=== PATIENT | female | born 1990 | race Caucasian/White ===

== ENCOUNTER 2025-10-01 12:58 | Outpatient (OUT) | payer OTHER, SELFPAY ==
--- NOTE | 2025-10-01 13:07 | US_ITS ---
The [address] [address] Patient Name: CAROLA WILLSON MRN: [id number] date: 1990 Sex: F Assigned Patient Location: [place] Current Patient Location: [place] Accession/Order Number: [id number] Exam Date: 10/01/2025 13:08 Report Date: 10/01/2025 19:43 At the request of: KAILA BARRIOS Procedure: US abdomen limited Limited ultrasound assessment of the left anterior-inferior chest wall HISTORY: Palpable lump swelling on the left for one day. There is a nonspecific prominence of the subcutaneous tissues in region of palpable abnormality. No distinct focal abnormality identified. US/US abdomen limited IMPRESSION: Nonspecific focal prominence of subcutaneous fat. No distinct lesion. Impression dictated by: Marco Antonio Ramsey M.D. 10/01/2025 7:43 PM Dictation Location: [place] [address] Electronically authenticated by: [id number] Y Date: 10/01/2025 19:43
== END 2025-10-01 12:59 | disposition home or self-care (01) ==
LOC: US 13:02
PROVIDERS: PCP Nurse Practitioner Family; Visit Provider Nurse Practitioner Family
DX: R19.02 Left upper quadrant abdominal swelling, mass and lump (principal)
CPT/HCPCS: 76705